=== PATIENT | female | born 1940 ===

== ENCOUNTER → 2017-02-16 | Outpatient (REF) | payer MEDICARE ==
[2017-02-16 18:51] LABS: INR 0.99
== END ==
LOC: M LAB REF 17:07
PROVIDERS: ATTEND Internal Medicine Medical Oncology
DX: C25.0 Malignant neoplasm of head of pancreas (principal)

== ENCOUNTER → 2017-03-05 | Outpatient (REF) | payer MEDICARE | LOC: M LAB REF 13:43 | PROVIDERS: ATTEND Internal Medicine Medical Oncology | DX: C25.9 Malignant neoplasm of pancreas, unspecified (principal) ==

== ENCOUNTER → 2017-04-02 | Outpatient (REF) | payer MEDICARE | LOC: M LAB REF 14:14 | PROVIDERS: ATTEND Internal Medicine Medical Oncology | DX: C25.9 Malignant neoplasm of pancreas, unspecified (principal) ==

== ENCOUNTER → 2017-04-24 | Outpatient (REF) | payer MEDICARE | LOC: M LAB REF 12:36 | PROVIDERS: ATTEND Internal Medicine Medical Oncology | DX: C25.9 Malignant neoplasm of pancreas, unspecified (principal) ==